=== PATIENT | female | born 1940 | race Caucasian/White ===

== ENCOUNTER → 2017-02-06 | Outpatient (CLI) | payer OTHER ==
--- NOTE | 2017-02-06 17:04 | PCVCIMAG ---
APPROVED REPORT Study performed: 02/06/2017 15:09:14 EXAM: Comprehensive 2D, Doppler, and color-flow Echocardiogram Patient Location: Echo lab Status: routine BSA: 2.02 HR: 75 bpmBP: 122/68 mmHg Rhythm: Atrial Fibrillation Other Information Study Quality: Good Indications Atrial Fibrillation Cardiomyopathy 2D Dimensions LVEF(%): 59.17 (>50%) IVSd: 11.19 (7-11mm)LVOT Diam: 18.79 (18-24mm) LVDd: 52.04 mm PWd: 10.52 (7-11mm)Ascending Ao: 33.83 (22-36mm) LVDs: 35.59 (25-40mm) Left Atrium: 43.78 (27-40mm) Aortic Root: 34.22 mm LV Single Plane 4CH: 60.88 % LV Single Plane 2CH: 61.91 %Chun's LVEF: 61.40 % Biplane EF: 60.5 % Volumes Left Atrial Volume (Systole) Single Plane 4CH: 65.75 mLSingle Plane 2CH: 73.85 mL LA ESV Index: 38.00 mL/m2 Aortic Valve AoV Peak Sukh.: 0.91 m/s AO Peak Gr.: 3.68 mmHgLVOT Max P.37 mmHg LVOT Max V: 0.73 m/s DARLENE Vmax: 2.22 cm2 Pulmonary Valve PV Peak Sukh.: 0.82 m/sPV Peak Gr.: 2.70 mmHg Tricuspid Valve TR Peak Sukh.: 2.84 m/sRAP Estimate: 7.00 mmHg TR Peak Gr.: 32.16 mmHg PA Pressure: 41.00 mmHg Left Ventricle Left ventricle is borderline dilated. There is normal LV segmental wall motion. Mild concentric left ventricular hypertrophy. Left ventricular systolic function is normal. The left ventricular ejection fraction is within the normal range. LVEF is 50-55%. This study is not technically sufficient to allow evaluation of the LV diastolic function due to atrial fibrillation. Right Ventricle Right ventricle is dilated. The right ventricular systolic function is normal. Atria Left atrium is dilated. Right atrium is dilated. Aortic Valve The Aortic valve is sclerotic. No aortic regurgitation is present. There is no aortic valvular stenosis. Mitral Valve There is mitral annular calcification. Mild mitral regurgitation. No evidence of mitral valve stenosis. Tricuspid Valve The tricuspid valve is normal in structure. Mild tricuspid regurgitation. Pulmonary artery pressure is 41 mmHg. Pulmonic Valve The pulmonary valve is normal in structure. Mild pulmonic regurgitation. Great Vessels The aortic root is normal in size. IVC is normal in size and collapses with >50% inspiration. Pericardium There is no pericardial effusion. <Conclusion> Left ventricle is borderline dilated. Mild concentric left ventricular hypertrophy. LVEF is 50-55%. This study is not technically sufficient to allow evaluation of the LV diastolic function due to atrial fibrillation. Right ventricle is dilated. Left atrium is dilated. Right atrium is dilated. The Aortic valve is sclerotic. There is no aortic valvular stenosis. Mild mitral regurgitation. Mild tricuspid regurgitation. Pulmonary artery pressure is 41 mmHg. There is no pericardial effusion.
== END | disposition home or self-care (01) ==
LOC: PCVCIMAG 14:09
PROVIDERS: ATTEND Internal Medicine Cardiovascular Disease
DX: I08.1 Rheumatic disorders of both mitral and tricuspid valves (principal); I42.9 Cardiomyopathy, unspecified; E78.00 Pure hypercholesterolemia, unspecified; M19.90 Unspecified osteoarthritis, unspecified site; Z79.899 Other long term (current) drug therapy; Z79.01 Long term (current) use of anticoagulants; Z88.2 Allergy status to sulfonamides; Z79.82 Long term (current) use of aspirin
CPT/HCPCS: 80061; 93005; 93306; G0463

== ENCOUNTER → 2017-08-12 | Outpatient (CLI) | payer OTHER | END | disposition home or self-care (01) | LOC: PCVCCLINIC 10:01 | DX: I48.91 Unspecified atrial fibrillation (principal); I10 Essential (primary) hypertension; I42.9 Cardiomyopathy, unspecified; E78.00 Pure hypercholesterolemia, unspecified; I87.8 Other specified disorders of veins; M19.90 Unspecified osteoarthritis, unspecified site; R94.31 Abnormal electrocardiogram [ECG] [EKG]; Z79.899 Other long term (current) drug therapy | CPT/HCPCS: 80061; 93005; G0463 ==

== ENCOUNTER → 2018-03-16 | Outpatient (CLI) | payer OTHER ==
--- NOTE | 2018-03-16 12:58 | PCVCIMAG ---
APPROVED REPORT Study performed: 03/16/2018 09:56:58 EXAM: Comprehensive 2D, Doppler, and color-flow Echocardiogram Patient Location: Echo lab Status: routine BSA: 2.02 HR: 74 bpmBP: 104/70 mmHg Rhythm: NSR Other Information Study Quality: Good Risk Factors: Cardiac Risk Factors: HTN, Hyperlipidemia Indications Atrial Fibrillation Hypertension/HDD Hyperlipidemia, cardiomyopathy 2D Dimensions IVSd: 11.87 (7-11mm)LVOT Diam: 18.86 (18-24mm) LVDd: 43.27 mm PWd: 11.05 (7-11mm)Ascending Ao: 35.87 (22-36mm) LVDs: 36.47 (25-40mm) Left Atrium: 45.72 (27-40mm) Aortic Root: 33.43 mm LV Single Plane 4CH: 46.43 % LV Single Plane 2CH: 46.11 % Biplane EF: 45.4 % Volumes Left Atrial Volume (Systole) Single Plane 4CH: 60.99 mLSingle Plane 2CH: 55.80 mL LA ESV Index: 34.00 mL/m2 Aortic Valve AoV Peak Sukh.: 1.10 m/s AO Peak Gr.: 4.88 mmHgLVOT Max P.93 mmHg LVOT Max V: 0.93 m/s DARLENE Vmax: 2.35 cm2 Mitral Valve E/A Ratio: 1.1 MV Decel. Time: 2298.89 ms MV E Max Sukh.: 1.25 m/s MV A Sukh.: 1.11 m/s Pulmonary Valve PV Peak Gr.: 1.74 mmHg Tricuspid Valve TR Peak Sukh.: 2.42 m/s TR Peak Gr.: 23.55 mmHg Left Ventricle The left ventricle is normal size. There is global hypokinesis of the left ventricle. There is normal left ventricular wall thickness. Left ventricular systolic function is mildly decreased. LVEF is 45%. This study is not technically sufficient to allow evaluation of the LV diastolic function due to atrial fibrillation. Right Ventricle The right ventricle is normal size. The right ventricular systolic function is normal. Atria Left atrium is mildly dilated. Right atrium is mildly dilated. Aortic Valve The aortic valve is normal in structure. No aortic regurgitation is present. There is no aortic valvular stenosis. Mitral Valve The mitral valve is normal in structure. Mild to moderate mitral regurgitation. No evidence of mitral valve stenosis. Tricuspid Valve The tricuspid valve is normal in structure. Moderate tricuspid regurgitation. Pulmonary artery pressure is 31mmHg. Pulmonic Valve The pulmonary valve is normal in structure. Trace pulmonic regurgitation. Great Vessels The aortic root is normal in size. IVC is normal in size and collapses >50% with inspiration. Pericardium There is no pericardial effusion. <Conclusion> The left ventricle is normal size. Left ventricular systolic function is mildly decreased. LVEF is 45%. This study is not technically sufficient to allow evaluation of the LV diastolic function due to atrial fibrillation. Left atrium is mildly dilated. Right atrium is mildly dilated. The aortic valve is normal in structure. Mild to moderate mitral regurgitation. Moderate tricuspid regurgitation. Pulmonary artery pressure is 31mmHg. The aortic root is normal in size. There is no pericardial effusion.
== END | disposition home or self-care (01) ==
LOC: PCVCIMAG 11:58
PROVIDERS: ATTEND Internal Medicine Cardiovascular Disease
DX: I08.1 Rheumatic disorders of both mitral and tricuspid valves (principal); I48.91 Unspecified atrial fibrillation; I10 Essential (primary) hypertension; I42.9 Cardiomyopathy, unspecified
CPT/HCPCS: 93306

== ENCOUNTER → 2018-12-14 | Outpatient (CLI) | payer OTHER | END | disposition home or self-care (01) | LOC: PCVCCLINIC 14:30 | PROVIDERS: ATTEND Internal Medicine Cardiovascular Disease | DX: I48.91 Unspecified atrial fibrillation (principal); E78.00 Pure hypercholesterolemia, unspecified; I42.9 Cardiomyopathy, unspecified; D68.59 Other primary thrombophilia | CPT/HCPCS: 36415; 80061; 93005; G0463 ==